=== PATIENT | female | born 1950 | race African-American/Black ===

== ENCOUNTER 2017-01-16 07:50 | Emergency (ER) | payer MEDICARE ==
[2016-01-23 09:57] VITALS: BMI 24.1
[~2017-01-16 07:50] MED LIST: ADVAIR 250/501 DISK INH; ASPIRIN EC81 M1 PO; CARAFATE1 G PO; CATAPRES0.2 MG PO; DIOVAN40 MG PO; HYDROCODONE-APA1 TAB PO; SOMA350 MG PO; VENTOLIN HFA18 GM INH; VESICARE5 MG PO; VITAMIN D50000 UNIT PO
== END 2017-01-16 08:47 | disposition home or self-care (01) ==
LOC: D.ER 07:50
DX: R51 Headache (principal); J45.909 Unspecified asthma, uncomplicated; K21.9 Gastro-esophageal reflux disease without esophagitis; I10 Essential (primary) hypertension

== ENCOUNTER 2017-02-08 09:17 | Emergency (ER) | payer MEDICARE ==
[2016-01-23 09:57] VITALS: BMI 24.1
== END 2017-02-08 12:25 | disposition home or self-care (01) ==
LOC: D.ER 09:17
DX: I10 Essential (primary) hypertension (principal); R51 Headache; J45.909 Unspecified asthma, uncomplicated; K21.9 Gastro-esophageal reflux disease without esophagitis; F17.200 Nicotine dependence, unspecified, uncomplicated

== ENCOUNTER 2018-02-24 06:34 | Inpatient (IN) | payer MEDICARE ==
[~2018-02-24] VITALS: Ht 165.1 cm; Wt 59.5 kg
[2018-02-24 08:54] LABS: BASOPHILS 0 % (0-2); EOSINOPHILS 0 % (0-7); HEMATOCRIT 38.5 % (36.0-48.0); HEMOGLOBIN 13.9 g/dL (12-16); IMMATURE GRANULOCYTES 0.3 % (0-5); LYMPHOCYTES 13.5 % (15-50); MCH 29.8 pg (26.0-34.0); MCHC 36.1 g/dL (31.0-37.0); MCV 82.4 fL (80.0-100.0); MEAN PLATELET VOLUME 9.6 fL (7.4-10.4); MONOCYTES 15.6 % (2-11); NEUTROPHILS 70.6 % (40-80); RBC 4.67 10x6/uL (4.00-5.40); RDW 11.9 % (11.5-14.5); WBC 11.8 10x3/uL (4.8-10.8)
[2018-02-24 09:04] LABS: PLATELET COUNT 493 10x3/uL (130-400)
[2018-02-24 09:10] LABS: BILIRUBIN - TOTAL 1.59 mg/dL (0.2-1.3); CALCIUM 8.6 mg/dL (8.5-10.1); CARBON DIOXIDE 28.3 mmol/L (21.0-32.0); PROTEIN - SERUM 8.2 g/dL (6.4-8.2)
[2018-02-24 09:33] LABS: ANION GAP 17.4 mmol/L (8-16)
[2018-02-24 09:34] LABS: POTASSIUM - SERUM 2.7 mmol/L (3.5-5.1)
[2018-02-24 16:05] VITALS: BP 125/69; BMI 20.8
[2018-02-24 16:59] LABS: MAGNESIUM - SERUM 1.2 mg/dL (1.8-2.4); PHOSPHOROUS 4.8 mg/dL (2.5-4.9)
[2018-02-24 19:07] LABS: T4 THYROXINE 9.3 ug/dL (4.7-13.3); THYROID STIMULATING HORMONE 1.05 uIU/mL (0.36-3.74)
[2018-02-24 21:48] VITALS: BP 144/84
[2018-02-25 02:26] VITALS: BP 152/82
[2018-02-25 05:13] LABS: BASOPHILS 0 % (0-2); EOSINOPHILS 0.2 % (0-7); HEMATOCRIT 36.2 % (36.0-48.0); HEMOGLOBIN 12.5 g/dL (12-16); IMMATURE GRANULOCYTES 0.3 % (0-5); MCH 28.8 pg (26.0-34.0); MCHC 34.5 g/dL (31.0-37.0); MCV 83.4 fL (80.0-100.0); MEAN PLATELET VOLUME 9.5 fL (7.4-10.4); MONOCYTES 11.4 % (2-11); NEUTROPHILS 73.1 % (40-80); PLATELET COUNT 398 10x3/uL (130-400); RBC 4.34 10x6/uL (4.00-5.40); WBC 10.2 10x3/uL (4.8-10.8)
[2018-02-25 05:27] LABS: ALBUMIN 3.5 g/dL (3.4-5.0); ALKALINE PHOSPHATASE 63 U/L (46-116); ALT (SGPT) 65 U/L (10-68); CALCIUM 8.2 mg/dL (8.5-10.1); CARBON DIOXIDE 24.6 mmol/L (21.0-32.0); CREATININE - SERUM 0.8 mg/dL (0.6-1.3); GLUCOSE 92 mg/dL (74-106); MAGNESIUM - SERUM 1.3 mg/dL (1.8-2.4); PHOSPHOROUS 2.2 mg/dL (2.5-4.9); PROTEIN - SERUM 7.2 g/dL (6.4-8.2); UREA NITROGEN 12 mg/dL (7-18); eGFR NON AFRICAN AMERICAN 75 mL/min (90-120)
[2018-02-25 05:28] LABS: CALC OSMOLALITY 241 mosm/kg (275-300); CHLORIDE - SERUM 84 mmol/L (98-107); POTASSIUM - SERUM 3.8 mmol/L (3.5-5.1); SODIUM 120 mmol/L (136-145)
[2018-02-25 09:48] VITALS: BP 182/93
[2018-02-25 10:12] VITALS: Ht 165.1 cm; Wt 59.5 kg
[2018-02-25 13:22] VITALS: BP 117/72
[2018-02-25] MEDS ORDERED: OMEPRAZOLE40 MG PO (14:57)
[2018-02-25] MEDS ORDERED: XANAX1 MG PO (14:58)
[2018-02-25 18:10] VITALS: BP 144/77
[2018-02-26 13:10] LABS: HEPATITIS C ANTIBODY <0.1 (0.0-0.9)
== END 2018-02-25 20:00 | disposition home or self-care (01) | DRG 640 ==
LOC: D.ER 06:34 → D.MS 13:55
PROVIDERS: Emergency Medicine; Family Medicine
DX: E87.1 Hypo-osmolality and hyponatremia (principal); G93.41 Metabolic encephalopathy; E87.6 Hypokalemia; E86.0 Dehydration; R79.89 Other specified abnormal findings of blood chemistry; E03.9 Hypothyroidism, unspecified; I10 Essential (primary) hypertension; F41.8 Other specified anxiety disorders; K75.9 Inflammatory liver disease, unspecified; Z87.891 Personal history of nicotine dependence